=== PATIENT | female | born 1990 | race Two or more races ===

== ENCOUNTER 2024-11-19 20:52 | Emergency (ER) | payer OTHER ==
[~2024-11-19] VITALS: Ht 175.3 cm; Wt 97.5 kg
[~2024-11-19 20:52] MED LIST: INTESTINEX1 CA1
[2024-11-19 23:21] LABS: HEMATOCRIT 34.4 % (36.0-45.00); HEMOGLOBIN 11.7 g/dL (12.0-15.00); MEAN CELL VOLUME 82.4 fL (80.00-100.00); PLATELET COUNT 248 K/uL (150-450); RED BLOOD COUNT 4.18 M/uL (4.00-6.00)
[2024-11-19 23:40] LABS: ERYTHROCYTE SEDIMENTATION RATE 41 mm/hr
[2024-11-19 23:44] LABS: ALBUMIN 3.2 gm/dL (3.4-5.0); BILIRUBIN TOTAL 0.38 mg/dL (0.3-1.2); CREATININE SERUM 0.51 mg/dL (0.55-1.02); GFR 139.75; GLOBULINA 4.1 G/DL (2.4-3.5); POTASSIUM 3.91 mEq/L (3.5-5.1); TOTAL PROTEIN 7.3 gm/dL (6.4-8.2)
[2024-11-20] MEDS ORDERED: DUI500 PO (00:10)
== END 2024-11-20 00:23 | disposition home or self-care (01) ==
LOC: ER 20:54
PROVIDERS: Preventive Medicine Public Health & General Preventive Medicine
DX: Z34.90 Encounter for supervision of normal pregnancy, unspecified, unspecified trimester (principal); M79.642 Pain in left hand; Z3A.15 15 weeks gestation of pregnancy

== ENCOUNTER 2025-04-30 13:00 | Inpatient (IN) | payer OTHER ==
[~2025-04-30] VITALS: Ht 175.3 cm; Wt 2.7 kg
[~2025-04-30 13:00] MED LIST changes: +DUI500 PO
[2025-05-13] MEDS ORDERED: PRENATAL TABLE1 EAC1 PO (05:47)
[2025-05-13 06:30] VITALS: BP 132/76
[2025-05-13] MEDS ORDERED: OXYTOCIN 20 UNITS/500ML RL PIGGYBAG IV ONE (06:45)
[2025-05-13] MEDS ORDERED: RINGERS SOLUTION,LACTATED 1,000 ML IV SCH (06:45)
[2025-05-13] MEDS ORDERED: OXYTOCIN 500 ML IV SCH (06:45)
[2025-05-13 07:21] VITALS: BP 111/63; O2SAT 99
[2025-05-13 07:26] LABS: URINE APPEARANCE Clear; URINE BILIRRUBIN Negative (NEGATIVE); URINE BLOOD Negative; URINE COLOR Yellow; URINE GLUCOSE Negative (NEGATIVE); URINE KETONE Negative (NEGATIVE); URINE LEUKOCYTE Negative; URINE NITRATE Negative; URINE PROTEIN Negative (NEGATIVE); URINE UROBILINOGEN 1.0 E.U./dl
[2025-05-13 07:30] LABS: URINE BACTERIA 781.1 uL (0.0-1933); URINE EPITHELIAL CELLS 36.2 uL (0.0-38.8); URINE RBC 4.8 uL (0.0-20.8); URINE WBC 15.5 uL (0.0-23.2)
[2025-05-13 07:44] LABS: URINE CAST 1.02 uL (0.0-1.40)
[2025-05-13 07:57] LABS: BASO % 0.2 % (0.1-1.2); EOS # 0.04 (0.04-0.54); EOS % 0.4 % (0.7-7.0); LYMPH # 1.57 (1.18-3.74); LYMPH % 17.6 % (19.3-53.1); MEAN PLATELET VOLUME 12.60 fl (9.4-12.4); MONO # 0.66 (0.24-0.82); MONO % 7.4 % (4.7-12.5); NEUT # 6.58 (1.56-6.13); NEUT % 74.1 % (34.0-71.1); RED CELL DISTRIBUTION WIDTH 14.0 % (11.6-14.4)
[2025-05-13 08:01] LABS: ALT/SGPT 18.0 U/L (12-78); AST/SGOT 13.0 U/L (15-37); BILIRUBIN TOTAL 0.73 mg/dL (0.3-1.2); BUN CREA RATIO 13.0 (7.0-25.0); CREATININE SERUM 0.52 mg/dL (0.55-1.02); GFR 135.8; GLOBULINA 3.7 G/DL (2.4-3.5); GLUCOSE FASTING 88.0 mg/dL (65-100); OSMOLALITY SERUM 275.0 MOSM/KG (275-295)
[2025-05-13 11:16] VITALS: BP 133/68
[2025-05-13 15:18] VITALS: BP 149/74
[2025-05-13] MEDS ORDERED: ERYTHROMYCIN BASE OPHT 1GM EACH TUBE OP ONE (16:02)
[2025-05-13] MEDS ORDERED: OXYTOCIN 10 UNITS/ML VIAL ONE (16:02)
[2025-05-13] MEDS ORDERED: CEFAZOLIN SODIUM 1,000 MG VIAL ONE (16:47)
[2025-05-13] MEDS ORDERED: MORPHINE SULFATE 4 MG/ML VIAL IV PRN (17:45)
[2025-05-13] MEDS ORDERED: CEFAZOLIN SODIUM 1,000 MG VIAL IV SCH (20:00)
[2025-05-13 21:21] VITALS: BP 121/64
[2025-05-14 00:12] VITALS: BP 121/68
[2025-05-14 01:47] LABS: BASO % 0.2 % (0.1-1.2); EOS # 0.01 (0.04-0.54); EOS % 0.1 % (0.7-7.0); LYMPH # 1.48 (1.18-3.74); LYMPH % 11.1 % (19.3-53.1); MEAN PLATELET VOLUME 12.30 fl (9.4-12.4); MONO # 0.87 (0.24-0.82); MONO % 6.5 % (4.7-12.5); NEUT # 10.93 (1.56-6.13); NEUT % 81.7 % (34.0-71.1); RED CELL DISTRIBUTION WIDTH 14.0 % (11.6-14.4)
[2025-05-14] MEDS ORDERED: ACETAMINOPHEN 500 MG GEL..CAP PO PRN (06:45)
[2025-05-14 08:44] VITALS: BP 130/80
[2025-05-14 16:00] VITALS: BP 131/82
[2025-05-15] VITALS: BP 107/71
[2025-05-15 07:46] VITALS: BP 112/68
[2025-05-15 16:00] VITALS: BP 112/72
[2025-05-16 01:21] VITALS: BP 127/81
[2025-05-16 08:13] VITALS: BP 111/76
[2025-05-16 16:20] VITALS: BP 112/72
[2025-05-17 01:01] VITALS: BP 111/70
[2025-05-17 08:16] VITALS: BP 124/76
== END 2025-05-17 18:16 | disposition home or self-care (01) | DRG 788 ==
LOC: OB/GYN 05-10 13:00 → LDR 05-13 06:34 → OB/GYN 05-13 06:34 → O/R 05-13 16:39 → OB/GYN 05-13 17:41
PROVIDERS: ADMIT Specialist; ATTEND Specialist
PROC: 4A1HXCZ Monitoring of Products of Conception, Cardiac Rate, External Approach (ICD-10-PCS; 2025-05-13)
PROC: 10D00Z1 Extraction of Products of Conception, Low, Open Approach (ICD-10-PCS; principal; 2025-05-13 15:30)
DX: O33.8 Maternal care for disproportion of other origin (principal); O48.0 Post-term pregnancy; Z3A.40 40 weeks gestation of pregnancy; Z37.0 Single live birth

== ENCOUNTER 2025-05-13 05:27 | Outpatient (CLI) | payer OTHER ==
[~2025-05-13] VITALS: Ht 175.3 cm; Wt 106.1 kg
[2025-05-13 05:36] VITALS: BP 132/76
[2025-05-13] MEDS ORDERED: PRENATAL TABLE1 EAC1 PO (05:47)
== END 2025-05-13 06:32 | disposition still patient (30) ==
LOC: OBS/DEL 05:27 → LDR 05:31 → OBS/DEL 05:32
PROVIDERS: ATTEND Specialist
DX: O26.893 Other specified pregnancy related conditions, third trimester (principal)